=== PATIENT | female | born 1970 | race Caucasian/White ===

== ENCOUNTER → 2016-07-21 | Outpatient (REF) | payer BC ==
[~2016-07-21] MED LIST: ASPI81CH3 PO; EXCETAB80 PO; EXTR500C4 PO; HYDR-3713 PO; LIDO5DIS36 TD; MECL25CH PO; MULTCAP PO; OMEP40CA2 PO; PHEN2SUP PO; PRAV40TA2 PO; TIZA2TA PO; TRAM50TA2 PO
== END ==
LOC: M SFHCLERA 10:35
PROVIDERS: ATTEND Physician Assistant
DX: J02.9 Acute pharyngitis, unspecified (principal)

== ENCOUNTER → 2017-03-29 | Outpatient (REF) | payer BC ==
[2017-04-02 18:49] LABS: VITAMIN B12 LEVEL 591 PG/ML (247-911)
== END ==
LOC: M LAB REF 04-01 16:30
DX: R20.8 Other disturbances of skin sensation (principal)
CPT/HCPCS: 82607

== ENCOUNTER → 2017-06-07 | Outpatient (REF) | payer BC ==
[2017-06-07 12:23] LABS: C REACTIVE PROTEIN QUANTITATIV 1.16 MG/DL (0.00-0.30)
[2017-06-07 12:23] LABS: RHEUMATOID FACTOR QUANT < 10.0 IU/ML (<15.0)
[2017-06-07 12:51] LABS: ERYTHROCYTE SEDIMENTATION RATE 43 mm/hr (0-20)
== END ==
LOC: M LABDRAW1 07:33
DX: M51.36 Other intervertebral disc degeneration, lumbar region (principal)
CPT/HCPCS: 86140

== ENCOUNTER → 2017-06-14 | Outpatient (CLI) | payer BC | LOC: M RAD 13:49 | DX: R19.07 Generalized intra-abdominal and pelvic swelling, mass and lump (principal) | CPT/HCPCS: 76856 ==

== ENCOUNTER → 2017-07-05 | Outpatient (CLI) | payer BC | LOC: M LRY 14:57 | DX: M25.521 Pain in right elbow (principal) | CPT/HCPCS: 73080 ==

== ENCOUNTER → 2017-07-23 | Outpatient (REF) | payer BC ==
[2017-07-23 18:26] LABS: CA 125 5.7 U/ML (<30.2)
== END ==
LOC: M LAB REF 16:43
DX: D39.12 Neoplasm of uncertain behavior of left ovary (principal)
CPT/HCPCS: 86304

== ENCOUNTER 2018-05-09 12:42 | Emergency (ER) | payer BC ==
[~2018-05-09] VITALS: Ht 162.6 cm; Wt 113.6 kg
[~2018-05-09 12:42] MED LIST changes: -LIDO5DIS36 TD; +LIDO5DIS41 TD; +MECL1CHW2 PO; -MECL25CH PO
[2018-05-09] MEDS ORDERED: GI COCKTAIL 50ML BTL(HYOSCYAMINE/MAALOX/LIDOCAINE VISCOUS)(1:3:1) PO ONE (13:30)
--- NOTE | 2018-05-09 13:30 | REP ---
Clinical: Acute chest pain . Comparison: 08/06/2011 . Findings: The mediastinum and cardiac silhouette are stable and within normal limits for portable technique. The lung luna are clear without acute consolidation, effusion, or pneumothorax. Skeletal structures are intact. Impression: No acute cardiopulmonary process appreciated. Electronically Signed by Jorge Arora MD 05/09/2018 01:23 P
[2018-05-09 13:39] LABS: BASO % 0.2 % (0.0-1.0); EOS # 0.1 10^3/uL (0.0-0.50); EOS % 1.2 % (0.0-3.0); HEMATOCRIT 40.5 % (36.0-47.0); HEMOGLOBIN 13.1 g/dl (12.0-15.5); LYMPH # 2.5 10^3/uL (1.5-4.5); LYMPH % 28.9 % (24.0-44.0); MEAN CORPUSCULAR HEMOGLOBIN 28.6 pg (27.0-33.0); MEAN CORPUSCULAR HGB CONC 32.3 g/dl (32.0-36.5); MEAN CORPUSCULAR VOLUME 88.4 fl (80.0-96.0); MONO # 0.5 10^3/uL (0.0-0.8); MONO % 5.8 % (0.0-5.0); NEUTROPHILS # 5.4 10^3/uL (1.8-7.7); NEUTROPHILS % 63.7 % (36.0-66.0); PLATELET COUNT, AUTOMATED 284 10^3/uL (150-450); RED BLOOD COUNT 4.58 10^6/uL (4.00-5.40); WHITE BLOOD COUNT 8.5 10^3/uL (4.0-10.0)
[2018-05-09] MEDS ORDERED: advil PO (13:50)
[2018-05-09 13:54] LABS: INR 0.97
[2018-05-09 14:05] LABS: ALBUMIN 3.7 GM/DL (3.2-5.2); ALT/SGPT 35 U/L (12-78); BILIRUBIN,TOTAL 0.3 MG/DL (0.2-1.0); BLOOD UREA NITROGEN 15 MG/DL (7-18); CALCIUM LEVEL 9.3 MG/DL (8.5-10.1); CARBON DIOXIDE LEVEL 27 MEQ/L (21-32); CHLORIDE LEVEL 106 MEQ/L (98-107); CK-MB VALUE MASS < 1.0 NG/ML (<3.6); CPK CREATINE PHOSPHOKINASE 91 U/L (26-192); CREATININE FOR GFR 0.99 MG/DL (0.55-1.30); GLOMERULAR FILTRATION RATE > 60.0 (>58); GLUCOSE, FASTING 103 MG/DL (70-100); LIPASE 137 U/L (73-393); SODIUM LEVEL 137 MEQ/L (136-145); TOTAL PROTEIN 8.2 GM/DL (6.4-8.2); TROPONIN I < 0.02 NG/ML (< 0.10)
[2018-05-09 15:16] VITALS: BP 141/81
--- NOTE | 2018-05-10 07:39 | ECGEPIP ---
Stationary ECG Study [facility] - ED Test Date: 2018-05-09 Pat Name: MANUEL WALTER Department: Room: - Gender: F [employer] Relations Manager: : [id number] Requested By: SIMONE Newman Order Number: [id number] Reading MD: Ren Vasquez Measurements Intervals [place] Rate: 78 P: 60 ME: 166 QRS: 18 QRSD: 85 T: 14 QT: 365 QTc: 416 Interpretive Statements SINUS RHYTHM LOW QRS VOLTAGE IN PRECORDIAL LEADS POOR R WAVE PROGRESSION NSTTW ABNORMALITIES SIMILAR TO 08/06/11 Electronically Signed On 05-10-2018 7:39:14 EST by Ren Vasuqez
== END 2018-05-09 15:28 | disposition home or self-care (01) ==
LOC: M ED 12:42
DX: R07.89 Other chest pain (principal); K21.9 Gastro-esophageal reflux disease without esophagitis; M51.9 Unspecified thoracic, thoracolumbar and lumbosacral intervertebral disc disorder; Z95.0 Presence of cardiac pacemaker; Z88.5 Allergy status to narcotic agent; Z82.49 Family history of ischemic heart disease and other diseases of the circulatory system; Z91.018 Allergy to other foods; Z91.041 Radiographic dye allergy status; Z79.899 Other long term (current) drug therapy; Z79.82 Long term (current) use of aspirin

== ENCOUNTER → 2020-02-02 | Outpatient (REF) | payer BC ==
[~2020-02-02] MED LIST changes: -ASPI81CH3 PO; +ASPI81CH48 PO; +MECL1CHW PO; -MECL1CHW2 PO; -OMEP40CA2 PO; +OMEP40CA97 PO; +advil PO
== END ==
LOC: M LAB REF 16:21
PROVIDERS: ATTEND Nurse Practitioner Adult Health
DX: R79.89 Other specified abnormal findings of blood chemistry (principal)

== ENCOUNTER → 2020-06-13 | Outpatient (REF) | payer BC ==
[2020-06-19 02:11] LABS: Alkaline Phosphatase Iso-Bone 18 % (14-68); Alkaline Phosphatase Iso-Intes 0 % (0-18); Alkaline Phosphatase Iso-Liver 82 % (18-85); TOTAL ALK PHOS 186 IU/L (39-117)
== END ==
LOC: M LAB REF 16:15
PROVIDERS: ATTEND Nurse Practitioner Adult Health
DX: R74.8 Abnormal levels of other serum enzymes (principal)

== ENCOUNTER → 2020-07-08 | Outpatient (CLI) | payer BC ==
--- NOTE | 2020-07-08 15:39 | REP ---
INDICATION: PAIN. COMPARISON: 08/29/2015 TECHNIQUE: AP and lateral views FINDINGS: The disc spaces are symmetric and relatively well maintained. There is mild anterior lipping and anterior disc space narrowing status quo. Vertebral body height and alignment is unchanged. There is no acute fracture or destructive osseous lesion. IMPRESSION: Stable appearing chronic changes <Electronically signed by Eleno Brown > 07/08/20 [id number]
== END ==
LOC: M WUC 13:27
PROVIDERS: ATTEND Nurse Practitioner Adult Health
DX: M54.14 Radiculopathy, thoracic region (principal)

== ENCOUNTER 2020-12-23 19:47 | Emergency (ER) | payer BC ==
[~2020-12-23] VITALS: Ht 162.6 cm; Wt 106.3 kg
[~2020-12-23 19:47] MED LIST changes: +OMEP40CA4 PO; -OMEP40CA97 PO
[2020-12-23 19:52] VITALS: BP 172/102
[2020-12-23] MEDS ORDERED: CLONI1TA PO (20:05)
[2020-12-23] MEDS ORDERED: ATOR1TAB21 PO (20:05)
[2020-12-23] MEDS ORDERED: MECL1TAB31 PO (20:05)
[2020-12-23] MEDS ORDERED: PROM25TA12 PO (20:05)
== END 2020-12-24 01:29 | disposition left against medical advice (07) ==
LOC: M ED 19:47
DX: Z53.21 Procedure and treatment not carried out due to patient leaving prior to being seen by health care provider (principal)

== ENCOUNTER → 2021-08-28 | Outpatient (REF) | payer BC ==
[~2021-08-28] MED LIST changes: +ATOR1TAB21 PO; +CLONI1TA PO; +MECL1TAB31 PO; +PROM25TA12 PO
== END ==
LOC: M LAB REF 11:48
PROVIDERS: ATTEND Nurse Practitioner Adult Health
DX: M54.6 Pain in thoracic spine (principal)

== ENCOUNTER → 2022-01-06 | Outpatient (REF) | payer BC | LOC: M WUC 11:49 | PROVIDERS: ATTEND Student in an Organized Health Care Education/Training Program | DX: J02.9 Acute pharyngitis, unspecified (principal) ==

== ENCOUNTER 2023-02-16 08:21 | Emergency (ER) | payer OTHER, BC ==
[~2023-02-16] VITALS: Ht 162.6 cm; Wt 85.9 kg
[~2023-02-16 08:21] MED LIST changes: +MECL-209 PO; -MECL1TAB31 PO
[2023-02-16] MEDS ORDERED: SEMA2PEN SQ (08:40)
[2023-02-16] MEDS ORDERED: AMLO10TA PO (08:41)
[2023-02-16 11:32] VITALS: BP 134/82; TEMP 97.2; O2SAT 98
== END 2023-02-16 12:07 | disposition home or self-care (01) ==
LOC: M ED 08:21
DX: S43.402A Unspecified sprain of left shoulder joint, initial encounter (principal); V49.40XA Driver injured in collision with unspecified motor vehicles in traffic accident, initial encounter; E11.9 Type 2 diabetes mellitus without complications; E78.5 Hyperlipidemia, unspecified; I10 Essential (primary) hypertension

== ENCOUNTER → 2023-03-06 | Outpatient (CLI) | payer OTHER, BC ==
[~2023-03-06] MED LIST changes: +AMLO10TA PO; +SEMA2PEN SQ
== END ==
LOC: M RAD 08:26
PROVIDERS: ATTEND Nurse Practitioner Family
DX: M25.512 Pain in left shoulder (principal); S43.492A Other sprain of left shoulder joint, initial encounter; X58.XXXA Exposure to other specified factors, initial encounter; Y92.9 Unspecified place or not applicable; Y93.9 Activity, unspecified; Y99.9 Unspecified external cause status; M75.02 Adhesive capsulitis of left shoulder

== ENCOUNTER → 2023-10-13 | Outpatient (REF) | payer OTHER, BC ==
[2023-10-13 17:08] LABS: APPEARANCE, URINE CLEAR (CLEAR); BACTERIA, URINE AUTO NEGATIVE (NEGATIVE); BILIRUBIN, URINE AUTO NEGATIVE (NEGATIVE); BLOOD, URINE BLOOD NEGATIVE (NEGATIVE); COLOR, URINE YELLOW (YELLOW); GLUCOSE, URINE (UA) AUTO NEGATIVE (NEGATIVE); KETONE, URINE AUTO NEGATIVE (NEGATIVE); LEUKOCYTE ESTERASE, URINE AUTO 1+ (NEGATIVE); MUCUS, URINE SMALL (NEGATIVE); NITRITE, URINE AUTO NEGATIVE (NEGATIVE); PROTEIN, URINE AUTO NEGATIVE (NEGATIVE); RBC, URINE AUTO 0 /HPF (0-3); SPECIFIC GRAVITY URINE AUTO 1.013 (1.002-1.035); SQUAMOUS EPITHELIAL CELL UR AU 0 /HPF (0-6); UROBILINOGEN, URINE AUTO 0.2 mg/dL (0.0-2.0); WBC, URINE AUTO 2 /HPF (0-3)
[2023-10-13 17:26] LABS: INR 0.95; PROTHROMBIN TIME 12.4 SECONDS (12.5-14.5)
== END ==
LOC: M LAB REF 16:29
PROVIDERS: ATTEND Internal Medicine
DX: Z01.810 Encounter for preprocedural cardiovascular examination (principal)

== ENCOUNTER → 2023-10-25 | Outpatient (REF) | payer OTHER, BC | LOC: M LAB REF 17:10 | PROVIDERS: ATTEND Internal Medicine | DX: R74.8 Abnormal levels of other serum enzymes (principal) ==

== ENCOUNTER → 2023-11-24 | Outpatient (CLI) | payer BC | LOC: M RAD 07:11 | PROVIDERS: ATTEND Internal Medicine | DX: R74.8 Abnormal levels of other serum enzymes (principal) ==

== ENCOUNTER → 2024-07-20 | Outpatient (CLI) | payer BC ==
[~2024-07-20] MED LIST changes: +AMLO-751 PO; -AMLO10TA PO
== END ==
LOC: M WUC 11:51
PROVIDERS: ATTEND Nurse Practitioner Family
DX: M25.561 Pain in right knee (principal)